=== PATIENT | female | born 1965 | race Caucasian/White ===

== ENCOUNTER 2021-08-10 01:15 | Inpatient (IN) ==
[2021-08-10] MEDS ORDERED: MORPHINE SULFATE INJ 2 MG INJ IVP ONE (01:31)
[2021-08-10] MEDS ORDERED: ZOFRAN INJ 4 MG VIAL IVP ONE (01:31)
[2021-08-10] MEDS ORDERED: ZOFRAN INJ 4 MG VIAL ONE (01:34)
[2021-08-10] MEDS ORDERED: MORPHINE SULFATE INJ 2 MG INJ ONE (01:34)
--- NOTE | 2021-08-10 01:35 | ED.ABDFE ---
HPI Time Seen Time Seen by Provider: 08/10/21 01:25 HPI Comment HPI Comment: Sudden onset of epigastric pain, n/v about five hours ago; worsening; normal bm yesterday and several small bms tonight; no burping, fever, chills, rash or episodes prior to this; had "greasy fries" for dinner; still has gb; underwent "aortic bypass" in September per Dr Moreno in [place]. PMH PMH Surgical History: AAA Repair ROS Review of Systems Constitutional: No Symptoms Reported Eyes: No Symptoms Reported ENTM: No Symptoms Reported Respiratoy: No Symptoms Reported Cardiovascular: No Symptoms Reported Genitourinary: No Symptoms Reported Neurological: No Symptoms Reported Musculoskeletal: No Symptoms Reported Integumentary: No Symptoms Reported Hematologic/Lymphatic: No Symptoms Reported Endocrine: No Symptoms Reported Psychiatric: No Symptoms Reported PE Vital Signs Vitals: Temperature 97.7 F Pulse Rate [Right Radial] 66 Pulse Rate 80 Respiratory Rate 20 Blood Pressure [Right Arm] 152/64 Blood Pressure 146/70 O2 Sat by Pulse Oximetry 100 General Limitations: No Limitations and Language Barrier General Appearance: Alert and In No Apparent Distress Head Head Exam: Normal Inspection Eyes Eye exam: Normal Appearance ENT ENT Exam: Normal Exam Neck Neck Exam: Normal Inspection Chest Chest Inspection: Normal Inspection Respiratory Respiratory Exam: Normal Lung Sounds Bilat Cardiovascular Cardiovascular Exam: Regular Rate and Normal Rhythm Abdominal Exam Abdominal Exam: Normal Inspection, Normal Bowel Sounds, Soft and Tenderness Abdominal Tenderness: Epigastrium and Moderate Rectal Rectal Exam: Deferred Back Back Exam: Normal Inspection Extremeties Extremities Exam: Normal Inspection Neurologic Neurological Exam: Alert and Oriented X3 Psychiatric Psychiatric Exam: Normal Affect and Normal Mood Skin Skin Exam: Warm, Dry and Intact COURSE Reevaluation 1st: Worsened 2nd: Improved (resting comfortably on phone) Consultation Call Returned: 05:38 (Dr Joyce accepts admission.) ROR Labs Reviewed Laboratory Results Reviewed?: Yes Result Diagrams: 08/10/21 01:44 08/10/21 01:44 Laboratory: WBC 18.6 X10^3/uL (3.6-10.0) H 08/10/21 01:44 RBC 4.79 X10^6/uL (3.5-5.4) 08/10/21 01:44 Hgb 13.8 g/dL (12.0-16.0) 08/10/21 01:44 Hct 40.9 % (36.0-47.0) 08/10/21 01:44 MCV 85.5 fL (80.0-100.0) 08/10/21 01:44 MCH 28.8 pg (27.0-34.0) 08/10/21 01:44 MCHC 33.7 g/dL (33.0-35.0) 08/10/21 01:44 RDW 13.2 % (11.6-16.5) 08/10/21 01:44 Plt Count 243 X10^3/uL (150.0-450.0) 08/10/21 01:44 MPV 10.1 fL (7.4-11.0) 08/10/21 01:44 Neut % (Auto) 87.3 % (42.0-75.0) H 08/10/21 01:44 Lymph % (Auto) 8.4 % (21.0-51.0) L 08/10/21 01:44 [place] % (Auto) 3.5 % (0.0-13.0) 08/10/21 01:44 Eos % (Auto) 0.1 % (0.9-2.9) L 08/10/21 01:44 Baso % (Auto) 0.7 % (0.2-1.0) 08/10/21 01:44 Neut # (Auto) 16.2 x10^3/uL (2.2-4.8) H 08/10/21 01:44 Lymph # (Auto) 1.6 X10^3/uL (1.3-2.9) 08/10/21 01:44 [place] # (Auto) 0.7 x10^3/uL (0.3-0.8) 08/10/21 01:44 Eos # (Auto) 0.0 x10^3/uL (0.0-0.2) 08/10/21 01:44 Baso # (Auto) 0.1 X10^3/uL (0.0-0.1) 08/10/21 01:44 Absolute Nucleated RBC 0.1 /100WBC 08/10/21 01:44 Sodium 136 mmol/L (136-145) 08/10/21 01:44 Corrected Sodium 142 mmol/L (136-145) 08/10/21 01:44 Potassium 4.4 mmol/L (3.5-5.1) 08/10/21 01:44 Chloride 98 mmol/L (98-107) 08/10/21 01:44 Carbon Dioxide 26.4 mmol/L (21-32) 08/10/21 01:44 BUN 14 mg/dL (7-18) 08/10/21 01:44 Creatinine 0.86 mg/dL (0.55-1.02) 08/10/21 01:44 Est GFR (MDRD) Af Amer > 60 (>60) 08/10/21 01:44 Est GFR (MDRD) Non-Af > 60 (>60) 08/10/21 01:44 Glucose 362 mg/dL (65-99) H 08/10/21 01:44 Calcium 9.8 mg/dL (8.5-10.1) 08/10/21 01:44 Corrected Calcium TNP 08/10/21 01:44 Total Bilirubin 0.50 mg/dL (0.2-1.0) 08/10/21 01:44 AST 15 Units/L (15-37) 08/10/21 01:44 ALT 21 Units/L (12-78) 08/10/21 01:44 Alkaline Phosphatase 111 Units/L (46-116) 08/10/21 01:44 Creatine Kinase 52 Units/L (26-192) 08/10/21 01:44 CK-MB (CK-2) 3.4 ng/mL (0-4.0) 08/10/21 01:44 CK/CKMB % Calc 6.5 % (<4) 08/10/21 01:44 Troponin I < 0.02 ng/mL (0-1.5) 08/10/21 01:44 Total Protein 8.0 g/dL (6.4-8.2) 08/10/21 01:44 Albumin 4.1 g/dL (3.4-5.0) 08/10/21 01:44 Globulin 3.9 g/dL (2.5-4.5) 08/10/21 01:44 Albumin/Globulin Ratio 1.1 Ratio (1.1-2.1) 08/10/21 01:44 Lipase 73 Units/L (73-393) 08/10/21 01:44 XRAY XRAY Interpreted by: Radiologist X-ray Results: abd ct: Mild hepatic steatosis. Multiple moderately dilated air and fluid-filled loops of proximal and mid small bowel consistent with obstruction. Small fat containing supraumbilical ventral hernia Opioid Opioid Risk Tool Total: 0 Total Score Risk Category: Low Risk Copyright: Mario predicting aberrant behaviors Diagnosis Discharge Problem: SBO (small bowel obstruction), Lymphocytosis Instructions Forms: [facility] Social Distancing
[2021-08-10 02:03] LABS: BASOPHILS # (AUTO) 0.1 X10^3/uL (0.0-0.1); BASOPHILS % (AUTO) 0.7 % (0.2-1.0); EOSINOPHILS % (AUTO) 0.1 % (0.9-2.9); HEMATOCRIT 40.9 % (36.0-47.0); HEMOGLOBIN 13.8 g/dL (12.0-16.0); LYMPHOCYTES # (AUTO) 1.6 X10^3/uL (1.3-2.9); LYMPHOCYTES % (AUTO) 8.4 % (21.0-51.0); MEAN CORPUSCULAR HEMOGLOBIN 28.8 pg (27.0-34.0); MEAN CORPUSCULAR HGB CONC 33.7 g/dL (33.0-35.0); MEAN CORPUSCULAR VOLUME 85.5 fL (80.0-100.0); MEAN PLATELET VOLUME 10.1 fL (7.4-11.0); MONOCYTES # (AUTO) 0.7 x10^3/uL (0.3-0.8); MONOCYTES % (AUTO) 3.5 % (0.0-13.0); NEUTROPHILS # (AUTO) 16.2 x10^3/uL (2.2-4.8); NEUTROPHILS % (AUTO) 87.3 % (42.0-75.0); PLATELET COUNT 243 X10^3/uL (150.0-450.0); RED BLOOD COUNT 4.79 X10^6/uL (3.5-5.4); RED CELL DISTRIBUTION WIDTH 13.2 % (11.6-16.5); WHITE BLOOD COUNT 18.6 X10^3/uL (3.6-10.0)
[2021-08-10 02:19] LABS: ALANINE AMINOTRANSFERASE 21 Units/L (12-78); ALBUMIN 4.1 g/dL (3.4-5.0); ALKALINE PHOSPHATASE 111 Units/L (46-116); ASPARTATE AMINO TRANSFERASE 15 Units/L (15-37); BLOOD UREA NITROGEN 14 mg/dL (7-18); CALCIUM 9.8 mg/dL (8.5-10.1); CARBON DIOXIDE 26.4 mmol/L (21-32); CHLORIDE 98 mmol/L (98-107); CKMB % 6.5 % (<4); COR NA(FOR HYPERGLY) 142 mmol/L (136-145); CREATINE KINASE 52 Units/L (26-192); CREATINE KINASE MB 3.4 ng/mL (0-4.0); CREATININE 0.86 mg/dL (0.55-1.02); LIPASE 73 Units/L (73-393); SODIUM 136 mmol/L (136-145); TROPONIN I < 0.02 ng/mL (0-1.5); eGFR NON BLACK RACES > 60 (>60)
--- NOTE | 2021-08-10 02:23 | RAD ---
HISTORYEPIGASTRIC PAIN, N/V, HX OF AORTIC BYPASS PMH: DM, HTN, HYST, AORTIC BYPASS [id number], 1 VIEWCOMPARISONNoneFINDINGSThe trachea is midline. The cardiac silhouette is unremarkable. The lungs are clear without focal infiltrate or effusion. Pulmonary vasculature within normal limits. The bony thorax is unremarkable.IMPRESSIONNormal chest.Electronically signed by: Arian Freedman (Aug 10, 2021 02:21:11)
[2021-08-10] MEDS ORDERED: NS 100 ML IV 100 ML ONE (04:07)
--- NOTE | 2021-08-10 04:44 | CT ---
HISTORYPT C/O EPIGASTRIC PAIN AND N/VSTUDYABDOMEN/PELVIS WITH CONCOMPARISONNoneTECHNIQUEMultiple axial images of the abdomen and pelvis were obtained from the lung bases to the pubic symphysis after the administration of IV contrast. Dose reduction techniques including Automated Exposure Control (AEC) and adjustment of mA and kV were utilized.FINDINGSThe visualized portions of the lung bases are unremarkable . The spleen, pancreas, kidneys, and adrenal glands are unremarkable in their CT appearance. The gallbladder is unremarkable in its CT appearance. The liver is normal in size and exhibits mild hepatic steatosis. No significant mesenteric lymphadenopathy or stranding can be observed. No free fluid or free air is seen within the abdomen. Normal appendix right lower quadrant. The stomach is moderately distended and fluid-filled. There are multiple moderately distended air and fluid-filled loops of small bowel consistent with is is obstruction. Distal small bowel is normal in caliber.. The colon is unremarkable. Specifically, there is no diverticulosis noted within the sigmoid colon. The urinary bladder is grossly unremarkable. The uterus has been removed. The bony structures are grossly intact. Small fat containing supraumbilical ventral hernia.IMPRESSIONMild hepatic steatosis.Multiple moderately dilated air and fluid-filled loops of proximal and mid small bowel consistent with obstruction.Small fat containing supraumbilical ventral herniaElectronically signed by: Arian Freedman (Aug 10, 2021 04:42:36)
[2021-08-10] MEDS ORDERED: NS 1,000 ML IV 1,000 ML ONE (05:08)
[2021-08-10] MEDS: NS 1,000 ML IV 1,000 ML IV SCH ×3 (05:15→21:18)
[2021-08-10] MEDS ORDERED: NS 1,000 ML IV 1,000 ML IV SCH (06:00)
[2021-08-10 08:18] VITALS: BMI 26.9
--- NOTE | 2021-08-10 08:46 | DR.H&P ---
H&P History & Physical for Day of: H&P Date: 08/10/21 Chief Complaint Chief Complaint: abdominal pain, vomiting Allergies Allergies Allergy/AdvReac Type Severity Reaction Status Date / Time No Known Allergies Allergy Verified 08/10/21 02:29 History of Present Illness History of Present Illness: Ms Barrett is a 56y/o female with a PMH of HTN, HLD, DM and aortic bypass presented with intractable vomiting and abdominal pain that started suddenly last night. Patient reports eating greasy fries and feeling sick shortly after. She has several episodes of vomiting at home with severe abdominal pain. She was trying to have a BM but only had a small one. She denies prev hx of obstruction. She has not had any vomiting over night. Denies BM or flatus. Labs reviewed Imaging reviewed Plan: Dr Rios was consulted on admission, will follow further recommendations. Continue hydration, anti-emetics, pain control and NPO. Monitor AM labs/imaging. Past Medical History Past Medical History: Diabetes and Hypertension Past Surgical History Surgical History: AAA Repair, Hysterectomy and Other Family History Family Medical History: Diabetes Mellitus, Cancer, [place], Coronary Artery Disease, Heart Failure and Hypertension Social History Does patient currently use any type of tobacco product: No Have you used tobacco products in the last 12 months: No Type of Tobacco Use: None Does any household member use tobacco: No Alcohol Use: None Drug Use: None Prescription drug monitoring program results: PDMP reviewed and no concerns identified Medications Home Medications: No Known Allergies Allergy (Verified 08/10/21 02:29) CONTINUE taking the following medications atorvastatin 40 mg PO DAILY 08/10/21 [History] ciclopirox 1 applic TOPICAL HS 08/10/21 [History] clopidogrel 75 mg PO DAILY 08/10/21 [History] gabapentin 300 mg PO BID 08/10/21 [History] terbinafine HCl 250 mg PO DAILY PRN 08/10/21 [History] tramadol 50 mg PO HS 08/10/21 [History] Labs Result Diagrams: 08/10/21 01:44 08/10/21 01:44 Labs: Laboratory WBC 18.6 X10^3/uL (3.6-10.0) H 08/10/21 01:44 RBC 4.79 X10^6/uL (3.5-5.4) 08/10/21 01:44 Hgb 13.8 g/dL (12.0-16.0) 08/10/21 01:44 Hct 40.9 % (36.0-47.0) 08/10/21 01:44 MCV 85.5 fL (80.0-100.0) 08/10/21 01:44 MCH 28.8 pg (27.0-34.0) 08/10/21 01:44 MCHC 33.7 g/dL (33.0-35.0) 08/10/21 01:44 RDW 13.2 % (11.6-16.5) 08/10/21 01:44 Plt Count 243 X10^3/uL (150.0-450.0) 08/10/21 01:44 MPV 10.1 fL (7.4-11.0) 08/10/21 01:44 Neut % (Auto) 87.3 % (42.0-75.0) H 08/10/21 01:44 Lymph % (Auto) 8.4 % (21.0-51.0) L 08/10/21 01:44 [place] % (Auto) 3.5 % (0.0-13.0) 08/10/21 01:44 Eos % (Auto) 0.1 % (0.9-2.9) L 08/10/21 01:44 Baso % (Auto) 0.7 % (0.2-1.0) 08/10/21 01:44 Neut # (Auto) 16.2 x10^3/uL (2.2-4.8) H 08/10/21 01:44 Lymph # (Auto) 1.6 X10^3/uL (1.3-2.9) 08/10/21 01:44 [place] # (Auto) 0.7 x10^3/uL (0.3-0.8) 08/10/21 01:44 Eos # (Auto) 0.0 x10^3/uL (0.0-0.2) 08/10/21 01:44 Baso # (Auto) 0.1 X10^3/uL (0.0-0.1) 08/10/21 01:44 Absolute Nucleated RBC 0.1 /100WBC 08/10/21 01:44 Sodium 136 mmol/L (136-145) 08/10/21 01:44 Corrected Sodium 142 mmol/L (136-145) 08/10/21 01:44 Potassium 4.4 mmol/L (3.5-5.1) 08/10/21 01:44 Chloride 98 mmol/L (98-107) 08/10/21 01:44 Carbon Dioxide 26.4 mmol/L (21-32) 08/10/21 01:44 BUN 14 mg/dL (7-18) 08/10/21 01:44 Creatinine 0.86 mg/dL (0.55-1.02) 08/10/21 01:44 Est GFR (MDRD) Af Amer > 60 (>60) 08/10/21 01:44 Est GFR (MDRD) Non-Af > 60 (>60) 08/10/21 01:44 Glucose 362 mg/dL (65-99) H 08/10/21 01:44 POC Glucose (mg/dL) 275 mg/dL (65-99) H 08/10/21 05:54 Calcium 9.8 mg/dL (8.5-10.1) 08/10/21 01:44 Corrected Calcium TNP 08/10/21 01:44 Total Bilirubin 0.50 mg/dL (0.2-1.0) 08/10/21 01:44 AST 15 Units/L (15-37) 08/10/21 01:44 ALT 21 Units/L (12-78) 08/10/21 01:44 Alkaline Phosphatase 111 Units/L (46-116) 08/10/21 01:44 Creatine Kinase 52 Units/L (26-192) 08/10/21 01:44 CK-MB (CK-2) 3.4 ng/mL (0-4.0) 08/10/21 01:44 CK/CKMB % Calc 6.5 % (<4) 08/10/21 01:44 Troponin I < 0.02 ng/mL (0-1.5) 08/10/21 01:44 Total Protein 8.0 g/dL (6.4-8.2) 08/10/21 01:44 Albumin 4.1 g/dL (3.4-5.0) 08/10/21 01:44 Globulin 3.9 g/dL (2.5-4.5) 08/10/21 01:44 Albumin/Globulin Ratio 1.1 Ratio (1.1-2.1) 08/10/21 01:44 Lipase 73 Units/L (73-393) 08/10/21 01:44 SARS-CoV-2 (PCR) Negative (NEGATIVE) 08/10/21 05:13 Influenza Type A (PCR) Negative (NEGATIVE) 08/10/21 05:13 Influenza Type B (PCR) Negative (NEGATIVE) 08/10/21 05:13 RSV (PCR) Negative (NEGATIVE) 08/10/21 05:13 Review of Systems Constitutional: No Symptoms Reported Eyes: No Symptoms Reported ENT: No Symptoms Reported Respiratory: No Symptoms Reported Cardiovascular: No Symptoms Reported Gastrointestinal: Nausea and Vomiting Genitourinary: No Symptoms Reported Musculoskeletal: No Symptoms Reported Skin: No Symptoms Reported Neurological: No Symptoms Reported Physical Exam Vital Signs: Temperature 98.6 F Pulse Rate [Right Radial] 84 Pulse Rate 80 Respiratory Rate 20 Blood Pressure [Right Arm] 137/73 Blood Pressure 146/70 O2 Sat by Pulse Oximetry 99 Oriented: Normal Eyes: Normal Nose: Normal Throat: Normal Respiratory: Clear Throughout Cardiovascular: Normal Auscultation: Bowel Sounds: Decreased Tenderness: Epigastric, Periumbilical and Mild Skin: Normal Musculoskeletal: Normal Psychiatric: Normal Mood Description: Calm Affect: Normal Speech Pattern: Clear and Appropriate Assessment/Plan (1) SBO (small bowel obstruction): Status: Acute (2) HTN (hypertension): Qualifiers: Hypertension type: primary hypertension Qualified Code(s): I10 - Essential (primary) hypertension Status: Acute (3) Type 2 diabetes mellitus: Qualifiers: Diabetes mellitus complication status: without complication Diabetes mellitus penitentiary insulin use: unspecified penitentiary insulin use status Qualified Code(s): E11.9 - Type 2 diabetes mellitus without complications Status: Acute Review H&P Reviewed: Yes Patient was examined?: Yes
[2021-08-10] MEDS: PROTONIX INJ 40 MG VIAL IVP SCH (10:25)
[2021-08-10] MEDS: ZOFRAN INJ 4 MG VIAL IVP PRN ×2 (10:25→20:40)
[2021-08-10] MEDS: MORPHINE SULFATE INJ 2 MG INJ IVP PRN ×3 (10:25→20:39)
[2021-08-10] MEDS: LOVENOX INJ 40 MG SYR SC SCH (10:30)
[2021-08-10] MEDS ORDERED: PHENERGAN INJ 25 MG IM PRN (15:07)
[2021-08-11 05:07] LABS: BASOPHILS % (AUTO) 0.2 % (0.2-1.0); EOSINOPHILS % (AUTO) 0.1 % (0.9-2.9); HEMATOCRIT 38.1 % (36.0-47.0); HEMOGLOBIN 12.8 g/dL (12.0-16.0); LYMPHOCYTES % (AUTO) 10.9 % (21.0-51.0); MEAN CORPUSCULAR HEMOGLOBIN 28.7 pg (27.0-34.0); MEAN CORPUSCULAR HGB CONC 33.5 g/dL (33.0-35.0); MEAN CORPUSCULAR VOLUME 85.8 fL (80.0-100.0); MEAN PLATELET VOLUME 10.5 fL (7.4-11.0); MONOCYTES # (AUTO) 1.4 x10^3/uL (0.3-0.8); MONOCYTES % (AUTO) 14.7 % (0.0-13.0); NEUTROPHILS % (AUTO) 74.1 % (42.0-75.0); PLATELET COUNT 217 X10^3/uL (150.0-450.0); RED BLOOD COUNT 4.44 X10^6/uL (3.5-5.4); RED CELL DISTRIBUTION WIDTH 13.4 % (11.6-16.5); WHITE BLOOD COUNT 9.5 X10^3/uL (3.6-10.0)
[2021-08-11] MEDS: NS 1,000 ML IV 1,000 ML IV SCH ×5 (05:20→21:13)
[2021-08-11 05:33] LABS: ALANINE AMINOTRANSFERASE 16 Units/L (12-78); ALBUMIN 3.3 g/dL (3.4-5.0); ALKALINE PHOSPHATASE 81 Units/L (46-116); ASPARTATE AMINO TRANSFERASE 14 Units/L (15-37); BLOOD UREA NITROGEN 21 mg/dL (7-18); CALCIUM 8.4 mg/dL (8.5-10.1); CARBON DIOXIDE 25.8 mmol/L (21-32); CHLORIDE 105 mmol/L (98-107); COR NA(FOR HYPERGLY) 144 mmol/L (136-145); CREATININE 0.78 mg/dL (0.55-1.02); SODIUM 140 mmol/L (136-145); TOTAL PROTEIN 6.6 g/dL (6.4-8.2); eGFR NON BLACK RACES > 60 (>60)
--- NOTE | 2021-08-11 05:54 | RAD ---
HISTORYSBO HX: HTN, COPD, DM SX: AAA REPAIR, HYSTERECTOMYSTUDYKUBCOMPARISONNone .br.br.br pattern. There is a moderate amount of fecal material throughout the colon. There are surgical clips noted in the mid abdomen and pelvis. No pathological soft tissue mass or calcification can be observed. The bony structures are grossly intact.IMPRESSIONNo evidence for acute abdominal pathology identified.Electronically signed by: Arian Freedman (Aug 11, 2021 05:53:07)
[2021-08-11] MEDS: PROTONIX INJ 40 MG VIAL IVP SCH (08:52)
[2021-08-11] MEDS: LOVENOX INJ 40 MG SYR SC SCH (08:53)
--- NOTE | 2021-08-11 18:57 | PCM.PROG ---
Progress Note Progress Note for Day of Date of Exam: 08/11/21 Subjective Subjective: Patient feels better today. She just had a BM. I told her we would start clear fluids satrting out with ice chips. Past Medical Family Social History Past Med/Fam/Surg Hx: No changes since H&P Allergies: Allergies No Known Allergies Allergy (Verified 08/10/21 02:29) Review of Systems ROS: No change since H&P Vital Signs and I&O's Vital Signs: Temperature 99.1 F Pulse Rate [Right Radial] 88 Pulse Rate 80 Respiratory Rate 20 Blood Pressure [Right Arm] 133/60 Blood Pressure 146/70 O2 Sat by Pulse Oximetry 99 Intake and Output: Intake & Output 08/09/21 08/10/21 08/11/21 08/12/21 11:59 11:59 11:59 11:59 Intake Total 2724 / 2724 550 / 550 Output Total 475 / 475 Balance 2249 / 2249 550 / 550 Physical Exam Oriented: Normal Eyes: Normal Nose: Normal Throat: Normal Respiratory: Normal Cardiovascular: Normal Auscultation: Bowel Sounds: Increased Tenderness: Normal Skin: Normal Musculoskeletal: Normal Psychiatric: Normal Mood Description: Calm Affect: Normal Speech Pattern: Clear and Appropriate Laboratory and Diagnostics Result Diagrams: 08/11/21 04:15 08/11/21 04:15 Labs: Laboratory WBC 9.5 X10^3/uL (3.6-10.0) D 08/11/21 04:15 RBC 4.44 X10^6/uL (3.5-5.4) 08/11/21 04:15 Hgb 12.8 g/dL (12.0-16.0) 08/11/21 04:15 Hct 38.1 % (36.0-47.0) 08/11/21 04:15 MCV 85.8 fL (80.0-100.0) 08/11/21 04:15 MCH 28.7 pg (27.0-34.0) 08/11/21 04:15 MCHC 33.5 g/dL (33.0-35.0) 08/11/21 04:15 RDW 13.4 % (11.6-16.5) 08/11/21 04:15 Plt Count 217 X10^3/uL (150.0-450.0) 08/11/21 04:15 MPV 10.5 fL (7.4-11.0) 08/11/21 04:15 Neut % (Auto) 74.1 % (42.0-75.0) 08/11/21 04:15 Lymph % (Auto) 10.9 % (21.0-51.0) L 08/11/21 04:15 [place] % (Auto) 14.7 % (0.0-13.0) H 08/11/21 04:15 Eos % (Auto) 0.1 % (0.9-2.9) L 08/11/21 04:15 Baso % (Auto) 0.2 % (0.2-1.0) 08/11/21 04:15 Neut # (Auto) 7.0 x10^3/uL (2.2-4.8) H 08/11/21 04:15 Lymph # (Auto) 1.0 X10^3/uL (1.3-2.9) L 08/11/21 04:15 [place] # (Auto) 1.4 x10^3/uL (0.3-0.8) H 08/11/21 04:15 Eos # (Auto) 0.0 x10^3/uL (0.0-0.2) 08/11/21 04:15 Baso # (Auto) 0.0 X10^3/uL (0.0-0.1) 08/11/21 04:15 Absolute Nucleated RBC 0.0 /100WBC 08/11/21 04:15 Sodium 140 mmol/L (136-145) 08/11/21 04:15 Corrected Sodium 144 mmol/L (136-145) 08/11/21 04:15 Potassium 4.0 mmol/L (3.5-5.1) 08/11/21 04:15 Chloride 105 mmol/L (98-107) 08/11/21 04:15 Carbon Dioxide 25.8 mmol/L (21-32) 08/11/21 04:15 BUN 21 mg/dL (7-18) H 08/11/21 04:15 Creatinine 0.78 mg/dL (0.55-1.02) 08/11/21 04:15 Est GFR (MDRD) Af Amer > 60 (>60) 08/11/21 04:15 Est GFR (MDRD) Non-Af > 60 (>60) 08/11/21 04:15 Glucose 252 mg/dL (65-99) H 08/11/21 04:15 POC Glucose (mg/dL) 136 mg/dL (65-99) H 08/11/21 16:22 Calcium 8.4 mg/dL (8.5-10.1) L 08/11/21 04:15 Corrected Calcium 9.0 mg/dL (8.5-10.1) 08/11/21 04:15 Total Bilirubin 0.70 mg/dL (0.2-1.0) 08/11/21 04:15 AST 14 Units/L (15-37) L 08/11/21 04:15 ALT 16 Units/L (12-78) 08/11/21 04:15 Alkaline Phosphatase 81 Units/L (46-116) 08/11/21 04:15 Creatine Kinase 52 Units/L (26-192) 08/10/21 01:44 CK-MB (CK-2) 3.4 ng/mL (0-4.0) 08/10/21 01:44 CK/CKMB % Calc 6.5 % (<4) 08/10/21 01:44 Troponin I < 0.02 ng/mL (0-1.5) 08/10/21 01:44 Total Protein 6.6 g/dL (6.4-8.2) 08/11/21 04:15 Albumin 3.3 g/dL (3.4-5.0) L 08/11/21 04:15 Globulin 3.3 g/dL (2.5-4.5) 08/11/21 04:15 Albumin/Globulin Ratio 1.0 Ratio (1.1-2.1) L 08/11/21 04:15 Lipase 73 Units/L (73-393) 08/10/21 01:44 SARS-CoV-2 (PCR) Negative (NEGATIVE) 08/10/21 05:13 Influenza Type A (PCR) Negative (NEGATIVE) 08/10/21 05:13 Influenza Type B (PCR) Negative (NEGATIVE) 08/10/21 05:13 RSV (PCR) Negative (NEGATIVE) 08/10/21 05:13 Radiology Reviewed: Yes Plan (1) SBO (small bowel obstruction): Status: Acute Narrative Support Text: Resolved. Plan: Clear liquid diet starting out with ice chips. (2) HTN (hypertension): Status: Acute Qualifiers: Hypertension type: primary hypertension Qualified Code(s): I10 - Essential (primary) hypertension Narrative Support Text: Stable at this time. (3) Type 2 diabetes mellitus: Status: Acute Qualifiers: Diabetes mellitus mcc insulin use: unspecified mcc insulin use status Diabetes mellitus complication status: without complication Qualified Code(s): E11.9 - Type 2 diabetes mellitus without complications
[2021-08-12 05:16] LABS: BASOPHILS # (AUTO) 0.1 X10^3/uL (0.0-0.1); BASOPHILS % (AUTO) 0.9 % (0.2-1.0); EOSINOPHILS # (AUTO) 0.1 x10^3/uL (0.0-0.2); EOSINOPHILS % (AUTO) 2.2 % (0.9-2.9); HEMATOCRIT 30.6 % (36.0-47.0); HEMOGLOBIN 10.5 g/dL (12.0-16.0); LYMPHOCYTES % (AUTO) 33.8 % (21.0-51.0); MEAN CORPUSCULAR HEMOGLOBIN 29.6 pg (27.0-34.0); MEAN CORPUSCULAR HGB CONC 34.5 g/dL (33.0-35.0); MEAN PLATELET VOLUME 10.3 fL (7.4-11.0); MONOCYTES % (AUTO) 15.9 % (0.0-13.0); NEUTROPHILS # (AUTO) 2.9 x10^3/uL (2.2-4.8); NEUTROPHILS % (AUTO) 47.2 % (42.0-75.0); PLATELET COUNT 163 X10^3/uL (150.0-450.0); RED BLOOD COUNT 3.56 X10^6/uL (3.5-5.4); RED CELL DISTRIBUTION WIDTH 12.9 % (11.6-16.5); WHITE BLOOD COUNT 6.1 X10^3/uL (3.6-10.0)
[2021-08-12 05:28] LABS: ALANINE AMINOTRANSFERASE 14 Units/L (12-78); ALBUMIN 2.7 g/dL (3.4-5.0); ALKALINE PHOSPHATASE 57 Units/L (46-116); ASPARTATE AMINO TRANSFERASE 12 Units/L (15-37); BLOOD UREA NITROGEN 14 mg/dL (7-18); CALCIUM 7.9 mg/dL (8.5-10.1); CARBON DIOXIDE 25.8 mmol/L (21-32); CHLORIDE 110 mmol/L (98-107); COR CA(FOR HYPOALB) 8.9 mg/dL (8.5-10.1); COR NA(FOR HYPERGLY) 144 mmol/L (136-145); CREATININE 0.69 mg/dL (0.55-1.02); SODIUM 143 mmol/L (136-145); TOTAL PROTEIN 5.5 g/dL (6.4-8.2); eGFR NON BLACK RACES > 60 (>60)
[2021-08-12] MEDS: NS 1,000 ML IV 1,000 ML IV SCH (05:43)
[2021-08-12] MEDS: LOVENOX INJ 40 MG SYR SC SCH (09:18)
[2021-08-12] MEDS: PROTONIX INJ 40 MG VIAL IVP SCH (09:19)
--- NOTE | 2021-08-12 10:18 | DR.PROGNOT ---
Hospital Progress Notes - Progress Note for Day of: Progress Note Date: 08/12/21 - Chief Complaint Chief Complaint: had large bowel movement . no abdominal pain . no nausea or vomiting . mild abdominal pain after meals . CBC, CMP were normal . KUB showed no obstruction .. - Past Medical Family Social History Past Med/Fam/Surg Hx: No changes since H&P Allergies: Allergies No Known Allergies Allergy (Verified 08/10/21 02:29) - Review Of Systems ROS: No change since H&P - Vital Signs Vital Signs: Temperature 98.5 F Pulse Rate [Right Radial] 83 Pulse Rate 80 Respiratory Rate 20 Blood Pressure [Right Arm] 125/57 Blood Pressure 146/70 O2 Sat by Pulse Oximetry 99 - Physical Exam Oriented: Normal Eyes: Normal Nose: Normal Throat: Normal Respiratory: Normal Cardiovascular: Normal GI:Auscultation: Normal, Increased GI:Palpation: Normal GI: Tenderness: Normal (soft, flat abdomen with only mild diffuse tendrness .. BS+) Skin: Normal Musculoskeletal: Normal Psychiatric: Normal Mood Description: Calm Affect: Normal Speech Pattern: Clear, Appropriate - Laboratory and Diagnostics Result Diagrams: 08/12/21 04:15 08/12/21 04:15 Labs: Laboratory WBC 6.1 X10^3/uL (3.6-10.0) 08/12/21 04:15 RBC 3.56 X10^6/uL (3.5-5.4) 08/12/21 04:15 Hgb 10.5 g/dL (12.0-16.0) L D 08/12/21 04:15 Hct 30.6 % (36.0-47.0) L 08/12/21 04:15 MCV 86.0 fL (80.0-100.0) 08/12/21 04:15 MCH 29.6 pg (27.0-34.0) 08/12/21 04:15 MCHC 34.5 g/dL (33.0-35.0) 08/12/21 04:15 RDW 12.9 % (11.6-16.5) 08/12/21 04:15 Plt Count 163 X10^3/uL (150.0-450.0) 08/12/21 04:15 MPV 10.3 fL (7.4-11.0) 08/12/21 04:15 Neut % (Auto) 47.2 % (42.0-75.0) 08/12/21 04:15 Lymph % (Auto) 33.8 % (21.0-51.0) 08/12/21 04:15 [place] % (Auto) 15.9 % (0.0-13.0) H 08/12/21 04:15 Eos % (Auto) 2.2 % (0.9-2.9) 08/12/21 04:15 Baso % (Auto) 0.9 % (0.2-1.0) 08/12/21 04:15 Neut # (Auto) 2.9 x10^3/uL (2.2-4.8) 08/12/21 04:15 Lymph # (Auto) 2.0 X10^3/uL (1.3-2.9) 08/12/21 04:15 [place] # (Auto) 1.0 x10^3/uL (0.3-0.8) H 08/12/21 04:15 Eos # (Auto) 0.1 x10^3/uL (0.0-0.2) 08/12/21 04:15 Baso # (Auto) 0.1 X10^3/uL (0.0-0.1) 08/12/21 04:15 Absolute Nucleated RBC 0.1 /100WBC 08/12/21 04:15 Sodium 143 mmol/L (136-145) 08/12/21 04:15 Corrected Sodium 144 mmol/L (136-145) 08/12/21 04:15 Potassium 3.4 mmol/L (3.5-5.1) L 08/12/21 04:15 Chloride 110 mmol/L (98-107) H 08/12/21 04:15 Carbon Dioxide 25.8 mmol/L (21-32) 08/12/21 04:15 BUN 14 mg/dL (7-18) 08/12/21 04:15 Creatinine 0.69 mg/dL (0.55-1.02) 08/12/21 04:15 Est GFR (MDRD) Af Amer > 60 (>60) 08/12/21 04:15 Est GFR (MDRD) Non-Af > 60 (>60) 08/12/21 04:15 Glucose 124 mg/dL (65-99) H 08/12/21 04:15 POC Glucose (mg/dL) 126 mg/dL (65-99) H 08/12/21 05:47 Calcium 7.9 mg/dL (8.5-10.1) L 08/12/21 04:15 Corrected Calcium 8.9 mg/dL (8.5-10.1) 08/12/21 04:15 Magnesium 2.1 mg/dL (1.7-2.9) 08/12/21 04:15 Total Bilirubin 0.40 mg/dL (0.2-1.0) 08/12/21 04:15 AST 12 Units/L (15-37) L 08/12/21 04:15 ALT 14 Units/L (12-78) 08/12/21 04:15 Alkaline Phosphatase 57 Units/L (46-116) 08/12/21 04:15 Creatine Kinase 52 Units/L (26-192) 08/10/21 01:44 CK-MB (CK-2) 3.4 ng/mL (0-4.0) 08/10/21 01:44 CK/CKMB % Calc 6.5 % (<4) 08/10/21 01:44 Troponin I < 0.02 ng/mL (0-1.5) 08/10/21 01:44 Total Protein 5.5 g/dL (6.4-8.2) L 08/12/21 04:15 Albumin 2.7 g/dL (3.4-5.0) L 08/12/21 04:15 Globulin 2.8 g/dL (2.5-4.5) 08/12/21 04:15 Albumin/Globulin Ratio 1.0 Ratio (1.1-2.1) L 08/12/21 04:15 Lipase 73 Units/L (73-393) 08/10/21 01:44 SARS-CoV-2 (PCR) Negative (NEGATIVE) 08/10/21 05:13 Influenza Type A (PCR) Negative (NEGATIVE) 08/10/21 05:13 Influenza Type B (PCR) Negative (NEGATIVE) 08/10/21 05:13 RSV (PCR) Negative (NEGATIVE) 08/10/21 05:13 - Assessment and Plan 1: subsiding partial SBO . to advance diet and discharge today . will follow as out Pt for future GI endscopy .. - Problem Patient Problems: Patient Problems SBO (small bowel obstruction) (Acute) K56.609 Lymphocytosis (Acute) D72.820
[2021-08-12 12:32] VITALS: BP 139/72
== END 2021-08-12 12:50 | disposition home or self-care (01) | DRG 390 ==
LOC: ER 01:20 → MED/SURG 01:20 → OBSVTOIN 05:39 → MED/SURG 06:35
PROVIDERS: ADMIT Internal Medicine; ATTEND Internal Medicine
DX: K43.9 Ventral hernia without obstruction or gangrene; K21.9 Gastro-esophageal reflux disease without esophagitis; K56.609 Unspecified intestinal obstruction, unspecified as to partial versus complete obstruction; Z20.822 Contact with and (suspected) exposure to COVID-19; E11.65 Type 2 diabetes mellitus with hyperglycemia; I10 Essential (primary) hypertension; J44.9 Chronic obstructive pulmonary disease, unspecified